=== PATIENT | male | born 1960 | race Caucasian/White ===

== ENCOUNTER 2021-01-23 19:51 | Inpatient (IN) | payer MEDICAID ==
[~2021-01-23] VITALS: Ht 172.7 cm; Wt 63.5 kg
--- NOTE | ~2021-01-23 | HEMODYNAMI ---
PATIENT:REMINGTON RIVERA MEDICAL RECORD: [id number] : 56 LOCATION:[facility] [id number] ADMISSION DATE: 01/23/21 Generatedon:114:22 Patient name: REMINGTON RIVERA Patient #: [id number] SSN: : 1960 Date of study: 01/28/2021 Page: Of Hemodynamic Procedure Report Patient Data Patient Demographics First Name: REMINGTON Gender: Male Last Name: MIGUEL : 1960 Patient #: [id number] Age: 60 year(s) Race: Unknown Additional ID: [id number] Contact details Address: [address] [place] [address] State: [place] City: [place] Zip code: [address] Past Medical History Allergies: No known allergies Admission Admission Data Admission Date: 01/23/2021 Admission Time: 22:29 Room #: [facility]6 Height (in.): 68 BSA: 1.76 (m2) Height (cm.): 172.72 BMI: 21.29 (kg/m2) Weight (lbs.): 140 Weight (kg.): 63.5 Procedure Procedure Types Cath Procedure Peripheral Cath Diagnostic Procedure PICC PICC Line Placement Procedure Description Procedure Date Procedure Date: 01/28/2021 Procedure Start Time: 14:12 Procedure Staff Name Function Jimmy Young MD Performing Physician Supriya Dejesus RT Strategic Communications Specialist Nneka Flores RN Nurse Luz Moore RN Nurse Barney Carcamo RT Scrub Procedure Data Cath Procedure Fluoroscopy Diagnostic fluoroscopy Total fluoroscopy Time: 0 time: 0 min min Diagnostic fluoroscopy Total fluoroscopy dose: 0 dose: 0 mGy mGy Hemodynamics Rest BSA: 1.76 (m2) O2 Consumption: Estimated: 239.36 (ml/min) O2 Consumption indexed : Estimated:136 (ml/min/m) Pre Cath Intra NCS Post Cath Procedure Log Time Note 13:56:34 Patient Height : 68 inches 13:56:39 Patient Weight : 140 lbs 13:57:15 Use device set PICC 13:57:18 SHIELD Sorbaview ([id number]) opened to sterile field. 13:57:19 Sterile Angiographic Pack opened to sterile field. 13:57:20 Bag Phyllis () opened to sterile field. 13:57:33 PowerPICC 5Fr double lumen catheter opened to sterile field. 13:57:48 - 13:57:52 Time tracking: Regular hours (M-F 7:00 - 5:00) 13:58:52 Patient received from Med/Surg to IR Alert and oriented. Tansferred to table in Supine position. 13:59:09 Patient allergic to No known allergies 14:04:12 Is patient on blood thinner?Yes 14:04:18 ACC The patient was administered the following blood thiners within the last 24 hours: ACCLovenox 14:04:37 Right Arm area was prepped with chlora-prep and draped in sterile fashion 14:04:42 - 14:11:32 Physician arrived 14::33 --------ALL STOP TIME OUT------ 14:11:33 Final Timeout: patient, procedure, and site verified with staff and physician. All members of the team are in agreement. 14:12:06 Procedure started. 14:12:07 Full Disclosure recording started 14:12:13 Local anesthetic to right arm with Lidocaine 1% by Jimmy Young MD.INITIAL ACCESS ONLY 14:21:05 PICC line was trimmed to 41cm and advanced to the superior vena cava.Position verified under fluoroscopy. 14:21:11 Procedure ended.(Physican Out) 14::33 Fluoroscopy time 00.00 minutes. 14:21:37 Fluoroscopy dose: 0 mGy 14:21:37 Flurop Dose total: 0 14:21:42 Procedure and supply charges have been captured, reviewed, submitted an d are correct. 14:22:20 Report given to Med/Surg. Device Usage Item Name Manufacture Quantity Catalog Hospital Part Current Minimal Lot# / Number Charge Number Stock Stock Serial# Code SHIELD Centurion 1 [id number] 5 Sorbaview ([id number]) Sterile Cardinal 1 [id number] 5 Angiographic Health Pack Bag Decanter Microtek 1 [id number] [id number] 5 () [employer] Inc[employer] PowerPICC Bard 1 [id number] 5 5Fr double lumen catheter Signature Audit [place] Stage Time Signature Unsigned Intra-Procedure 01/28/2021 Supriya Dejesus 2:22:38 PM RT(R) [facility] [address] [place] [address]
[~2021-01-23 19:51] MED LIST: COMBIVENT RESPIM4 GM INH; DULERA 200 MCG8.8 GM INH; FLORAJEN3 CAPS460 MG PO; GLUCOTROL 5 MG T5 MG PO; NEURONTIN 300300 MG PO; OMNICEF300 MG PO; PREDNISONE10 MG PO; SINGULAIR10 MG PO; ZITHROMAX250 MG PO
[2021-01-23 21:02] LABS: BASOPHILS 0.2 % (0-2); EOSINOPHILS 1.7 % (0-7); HEMATOCRIT 38.2 % (42.0-54.0); HEMOGLOBIN 12.5 g/dL (13.5-17.5); IMMATURE GRANULOCYTES 0.2 % (0-5); LYMPHOCYTE ABS# 2.95 10x3/uL (1.32-3.57); LYMPHOCYTES 21.5 % (15-50); MCH 33.8 pg (26.0-34.0); MCHC 32.7 g/dL (31.0-37.0); MCV 103.2 fL (80.0-100.0); MEAN PLATELET VOLUME 11.8 fL (7.4-10.4); MONOCYTES 8.1 % (2-11); NEUTROPHIL ABS# 9.38 10x3/uL (1.78-5.38); NEUTROPHILS 68.3 % (40-80); PLATELET COUNT 340 10x3/uL (130-400); RDW 16.1 % (11.5-14.5); WBC 13.8 10x3/uL (4.8-10.8)
[2021-01-23 21:04] LABS: ANION GAP 14.5 mmol/L (8-16); CALCIUM 9.1 mg/dL (8.5-10.1); CREATININE - SERUM 1.4 mg/dL (0.6-1.3); POTASSIUM - SERUM 4.5 mmol/L (3.5-5.1)
[2021-01-23 21:09] LABS: ALBUMIN 3.1 g/dL (3.4-5.0); BILIRUBIN - TOTAL 0.65 mg/dL (0.2-1.3); MAGNESIUM - SERUM 2.2 mg/dL (1.8-2.4); PROTEIN - SERUM 8.1 g/dL (6.4-8.2)
[2021-01-23 23:06] VITALS: BP 113/79
[2021-01-23] MEDS ORDERED: ALEVE220 MG PO (23:34)
[2021-01-23] MEDS ORDERED: SLEEP AID (23:35)
[2021-01-24 01:07] VITALS: BMI 21.3
--- NOTE | 2021-01-24 03:18 | NUR ---
PLACE WET TO DRY DRESSING ON INSIDE RIGHT FOOT OPEN ULCER (RED AND SWOOLEN WITH MINIMAL DISCHARGE NOTED), WRAPPED GAUZE AROUND FOOT TO KEEP IN PLACE, PILLOW UNDER FOOT TO HELP WITH CONFORT.
[2021-01-24 05:07] VITALS: BP 150/65
[2021-01-24 06:11] LABS: BASOPHILS 1.4 % (0-2); EOSINOPHILS 4.3 % (0-7); HEMOGLOBIN 11.9 g/dL (13.5-17.5); LYMPHOCYTES 23.8 % (15-50); MCH 34.1 pg (26.0-34.0); MCV 103.2 fL (80.0-100.0); MEAN PLATELET VOLUME 8.6 fL (7.4-10.4); MONOCYTES 9.7 % (2-11); NEUTROPHILS 60.8 % (40-80); PLATELET COUNT 306 10x3/uL (130-400); RBC 3.49 10x6/uL (4.20-6.10); RDW 15.3 % (11.5-14.5)
[2021-01-24 06:16] LABS: WBC 9.8 10x3/uL (4.8-10.8)
[2021-01-24 06:45] LABS: ALBUMIN 2.5 g/dL (3.4-5.0); ANION GAP 13.5 mmol/L (8-16); BILIRUBIN - TOTAL 0.67 mg/dL (0.2-1.3); CALCIUM 8.7 mg/dL (8.5-10.1); CARBON DIOXIDE 24.4 mmol/L (21.0-32.0); CREATININE - SERUM 1.1 mg/dL (0.6-1.3); POTASSIUM - SERUM 3.9 mmol/L (3.5-5.1); PROTEIN - SERUM 6.9 g/dL (6.4-8.2)
[2021-01-24 07:53] VITALS: Ht 172.7 cm; Wt 63.5 kg
--- NOTE | 2021-01-24 08:15 | NUR ---
PT RESTING QUIETLY IN BED WITH RIGHT LOWER EXTREMITY ELEVATED. REPORTS PAIN AT 9/10 AT THIS TIME. PAIN MEDICATION TO BE ADMINISTERED AT THIS TIME. IV TO RIGHT FOREARM WITH NS @ 75ML/HR INFUSING VIA PUMP. SITE WITHOUT REDNESS OR EDEMA. DRESSING TO RIGHT LOWER EXTREMITY C/D/I AT THIS TIME. PT DENIES FURTHER NEEDS AT THIS TIME. CL WITHIN REACH. ENCOURAGED TO CALL WITH NEEDS. CONTINUE POC
[2021-01-24 08:26] VITALS: BP 122/63
[2021-01-24 11:34] VITALS: BP 119/72
--- NOTE | 2021-01-24 14:05 | NUR ---
EKG PERFORMED PER MD ORDERS
[2021-01-24 17:26] VITALS: BP 122/70
--- NOTE | 2021-01-24 19:28 | NUR ---
PATIENT RESTING IN BED WITH NO S/S OF DISTRESS AND REQUESTED PAIN MEDS WHEN AVAILABLE. PATIENT DENIES OTHER NEEDS AT THIS TIME. BED IN LOWEST POSITION AND CALL LIGHT IN REACH. ENCOURAGED PATIENT TO CALL WITH OTHER NEEDS.
--- NOTE | 2021-01-24 19:48 | NUR ---
ADMINISTERED MEDS PER ORDERS. PATIENT EMERSON WELL. ENCOURAGED PATIENT TO CALL WITH NEEDS.
[2021-01-24 20:00] VITALS: BP 124/72
[2021-01-25] VITALS (9 sets, daily range): BP systolic 107–141; BP diastolic 50–78
[2021-01-25 05:32] LABS: BASOPHILS 0.9 % (0-2); EOSINOPHILS 5.1 % (0-7); HEMATOCRIT 35.9 % (42.0-54.0); HEMOGLOBIN 12.1 g/dL (13.5-17.5); LYMPHOCYTES 26.7 % (15-50); MCH 34.5 pg (26.0-34.0); MCHC 33.6 g/dL (31.0-37.0); MCV 102.7 fL (80.0-100.0); MEAN PLATELET VOLUME 8.9 fL (7.4-10.4); MONOCYTES 11.2 % (2-11); NEUTROPHILS 56.1 % (40-80); PLATELET COUNT 294 10x3/uL (130-400); RDW 15.4 % (11.5-14.5); WBC 9.5 10x3/uL (4.8-10.8)
[2021-01-25 05:40] LABS: ANION GAP 11.6 mmol/L (8-16); CALCIUM 8.6 mg/dL (8.5-10.1); CREATININE - SERUM 1.2 mg/dL (0.6-1.3); POTASSIUM - SERUM 3.6 mmol/L (3.5-5.1)
--- NOTE | 2021-01-25 07:57 | HP ---
PATIENT: REMINGTON RIVERA MEDICAL RECORD: [id number] ACCOUNT: [id number] LOCATION:[facility] : 56 ADMISSION DATE: 01/23/21 PCP: No PCP HISTORY AND PHYSICAL EXAMINATION REASON FOR ADMISSION: Right foot ulcer and pain, unable to walk. HISTORY OF PRESENT ILLNESS: The patient is a 60-year-old male, metabolic syndrome patient who was hospitalized at [facility] on 10/2020. He was treated for community-acquired pneumonia that occurred after he had had COVID while living in [place]. He was hospitalized for several weeks and was seen by medicine unassigned call in as well as pulmonary. At discharge, he apparently missed his follow up Medicaid [facility] appointment with Dr. Goode did not have his diabetic meds refilled. He said about a month and a half ago he noticed some blisters on the medial aspect of his right foot by the sole. He thought something had bit him, but gradually got worse. He was trying to "play doctor" himself, but that was not improving. Pain became so bad yesterday he could not walk and came to the ED. He denies fever, but does admit to having some trouble with claudication symptoms in his right leg when he walks a distance. He has a [id number] history of smoking. He quit after COVID. Denies alcohol use. He is retired and on Medicaid. PAST MEDICAL HISTORY: AODM diagnosed less than a year ago, COPD, nicotine use, COVID pneumonia in 2019, neuropathy in both feet. 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 FAMILY HISTORY: Mother from COVID as did his sister. There is no heart disease in his family. SOCIAL HISTORY: Denies alcohol use or recreational drug use. HOME MEDICATIONS: None. ALLERGIES: None known. REVIEW OF SYSTEMS: GENERAL: He has had about a 30-pound weight loss due to COVID, has gradually improved. No fever. HEENT: No recent visual change, sinus congestion or sore throat. He is edentulous. RESPIRATORY: He has shortness of breath on exertion. No recent cough, congestion or sputum production. CARDIAC: No exertional chest pain. Questionable history of some claudication in his right leg with walking two blocks. Denies hypertension, previous arrhythmias. GASTROINTESTINAL: No nausea, vomiting, change in stools, blood per rectum or history of ulcer disease. GENITOURINARY: Nocturia once nightly. ENDOCRINE: Denies polyuria, polydipsia, heat or cold intolerance. NEUROLOGIC: No history of stroke, TIA, vascular headaches. Does have tingling and numbness in the bottoms of both of his feet. MUSCULOSKELETAL: Pain in his right foot as mentioned, unable to walk now currently due to the ulcer and pain, plantar aspect of the foot, denies injury. HISTORY AND PHYSICAL [id number] REMINGTON RIVERA INTEGUMENT: As above. Denies pruritus. PSYCHIATRIC: Denies depression. PHYSICAL EXAMINATION: GENERAL: Alert, thin, male in no acute distress, gives a good history. VITAL SIGNS: His height is 5 feet 8 inches, his weight is 140 pounds, blood pressure is 140/72, sat 99% on room air, respirations 18, temperature 98.7. HEENT: Normocephalic. Eyes are clear. Pupils are reactive. Oropharynx; he is edentulous. NECK: No bruits or masses. CHEST: He has distant breath sounds with forced expiration, but no wheezes bilaterally. HEART: Regular rate and rhythm without murmur. ABDOMEN: Soft, nontender. No organomegaly or tenderness. GENITOURINARY: Unremarkable. RECTAL: Deferred. EXTREMITIES: His right foot has a mid-plantar ulcer with surrounding cellulitic changes, extremely painful to bear weight. He has slight decreased sensation to touch involving both feet. NEUROLOGICAL: Oriented to person, place and time. Cranial nerves are intact. Gait was not tested due to pain. Sensory; slight decreased sensation to touch, involves both feet. Femoral and popliteal pulses are intact in the right leg. LABORATORY AND DIAGNOSTIC DATA: Shows white count of 13,800, hemoglobin 12.5, hematocrit 38, MCV is 103. BMP is normal with a glucose of 86, creatinine of 1.1. A1c of 5.7. Lactic acid 1.7. Liver functions are normal. X-ray of the right foot shows erosion at the base of the medial aspect of the medial cuneiform navicular bone. No fracture is noted. Erosions are consistent with possible osteomyelitis. ASSESSMENT: 1. Right foot ulcer with cellulitis, possible osteomyelitis, unable to walk. 2. Adult-onset diabetes mellitus, well-controlled. 3. Chronic obstructive pulmonary disease with nicotine addiction, resolved. 4. Subacute COVID illness. PLAN: The patient has been admitted, placed on IV antibiotics. Wound has been cultured. Orthopedics has been consulted. The patient understands current plan of care and agrees. TRANSINT:[id number] Voice Confirmation ID: [id number] DOCUMENT ID: [id number] FAITH MORALES MD at 0757 CC: [id number] DICTATION DATE: 01/24/21820 FIELD MARKETING ASSOCIATE: 01/24/21928 ADM IN [facility] [address] [place] [address]
--- NOTE | 2021-01-25 08:00 | NUR ---
PT RESTING IN BED WITH RIGHT LOWER EXTREMITY ELEVATED. PT REPORTS PAIN 10/10 AT THIS TIME. DISCUSSED NEXT DOSE OF PAIN MEDICATION AND WHEN CAN BE ADMINISTERED. PT VOICES UNDERSTANDING. IV TO RIGHT FOREARM WITH NS @ 75ML/HR INFUSING VIA PUMP. SITE WITHOUT REDNESS OR EDEMA. DRESSING C/D/I TO RIGHT LOWER EXTREMITY. EXTREMITY WARM TO TOUCH WITH REDNESS AND SWELLING NOTED TO EXTREMITY. EXTREMITY ELEVATED ON PILLOWS. PT DENIES FURTHER NEEDS AT THIS TIME. CL WITHIN REACH. ENCOURGED TO CALL WITH NEEDS. CONTINUE POC
--- NOTE | 2021-01-25 15:37 | NUR ---
PT TAKEN TO SURGERY VIA BED FOR PROCEDURE
--- NOTE | 2021-01-25 16:52 | NUR ---
PT RETURNED FROM SURGERY VIA BED. AWAKE ALERT AND ORIENTED. PREVENA DRESSING INTACT TO RIGHT LOWER EXT
--- NOTE | 2021-01-25 19:17 | NUR ---
PATIENT RESTING IN BED WITH NO S/S OF DISTRESS AND DENIES NEEDS AT THIS TIME. BED IN LOWEST POSITION AND CALL LIGHT IN REACH. ENCOURAGED PATIENT TO CALL WITH NEEDS.
--- NOTE | 2021-01-25 20:01 | NUR ---
ADMINISTERED MEDS PER ORDERS. PATIENT EMERSON WELL. ENCOURAGED TO CALL WITH NEEDS.
[2021-01-26] VITALS: BP 112/61
[2021-01-26 06:30] LABS: ANION GAP 13.2 mmol/L (8-16); CALCIUM 8.7 mg/dL (8.5-10.1); CARBON DIOXIDE 23.8 mmol/L (21.0-32.0); CREATININE - SERUM 1.1 mg/dL (0.6-1.3)
[2021-01-26] MEDS ORDERED: HYDROCODON-ACE1 EAC7 PO (06:55)
--- NOTE | 2021-01-26 07:40 | NUR ---
was medicated with norco for c/o right foot pain. c/l in reach at bedside.
[2021-01-26 08:48] LABS: BASOPHILS 0.5 % (0-2); EOSINOPHILS 0.1 % (0-7); HEMOGLOBIN 11.5 g/dL (13.5-17.5); LYMPHOCYTES 22.5 % (15-50); MCH 34.1 pg (26.0-34.0); MCHC 32.8 g/dL (31.0-37.0); MCV 103.8 fL (80.0-100.0); MEAN PLATELET VOLUME 9.3 fL (7.4-10.4); MONOCYTES 7.7 % (2-11); NEUTROPHILS 69.2 % (40-80); PLATELET COUNT 333 10x3/uL (130-400); RBC 3.37 10x6/uL (4.20-6.10)
[2021-01-26 08:50] LABS: WBC 7.1 10x3/uL (4.8-10.8)
[2021-01-26 09:22] VITALS: BP 118/55
[2021-01-26 11:35] VITALS: BP 120/77
--- NOTE | 2021-01-26 12:59 | NUR ---
PATIENT STATED PAIN IS AT 9, ADMINISTERED PRN PAIN MEDICATION, 300 EMPTIED FROM URINAL, NO OTHER NEEDS AT THIS TIME. CONTINUE WITH PLAN OF CARE
--- NOTE | 2021-01-26 16:58 | NUR ---
I have reviewed this patient and I concur with the Shift Assessment completed by the Licensed Practical Nurse today this shift.
[2021-01-26 17:28] VITALS: BP 132/73
[2021-01-26 20:00] VITALS: BP 137/63
--- NOTE | 2021-01-26 22:08 | NUR ---
1930) EYES CLOSED RESP DEEP AND EVEN LYING ON LEFT SIDE RT. LEG ELEVATED ON PILLOW WITH WOUND VAC IN PLACE . WILL CONTINUE TO MONITOR FOR ANY CHGES AND FOLLOW CURRENT PLAN OF CARE.2099) REQUESTING IV PAIN MED.INFORMED WILL BE DUE AT 2129.STATES OTHER NURSES HELP ME OUT CAUSE I WAS HURTING.INSTRUCTED CALL TO SEE IF IV MORPHINE CAN BE RENEWED.MARK OFFERED.REFUSED STATES YOU TRY HAVIN SURGERY ON YOUR LEG SEE HOW YOU LIKE I CAN MOTHER-ERICA GO HOME AND HURT WILL WESTON THIS MOTHER FUCKIN PLACE ATTEMPTS TO INSTRUCT ON PHYSICIAN ORDERS UNSUCESSFUL,CONTINUES TO CURSE REPORTED TO CHARGE NURSE raj mckenna rn to housekeeper cleaning cooking edith fischer. instructed to call securty because of patients aggressiveness.DR KAPLAN CALLED X2 NO RESPONSE.2214) DR LOBO BARREL DRAINER FOR DR MORALES NEW ORDERS REC'D TO RENEW IV PAIN MEDS REC'D.WILL CONTINUE TO MONITOR AND FOLLOW CURRENT PLAN OF CARE
[2021-01-27 04:00] VITALS: BP 133/73
--- NOTE | 2021-01-27 06:00 | NUR ---
I have reviewed this patient and I concur with the Shift Assessment completed by the Licensed Practical Nurse today this shift.
[2021-01-27 08:38] VITALS: BP 142/79
--- NOTE | 2021-01-27 11:28 | NUR ---
I have reviewed this patient and I concur with the Shift Assessment completed by the Licensed Practical Nurse today this shift.
[2021-01-27 11:45] VITALS: BP 138/78
--- NOTE | 2021-01-27 12:03 | NUR ---
Nutrition follow-up: Diet order: Consistent CHO PO intake 100% of meals Labs reviewed; glucose under very good control A1c: 5.7% Wt: 140# Pt with very good po intake Will continue to provide food choices and honor food preferences. Will follow-up on continued progress toward goals: 02/03/21
--- NOTE | 2021-01-27 13:33 | MORECARE ---
CASE MANAGEMENT DISCHARGE SUMMARY PATIENT: REMINGTON RIVERA UNIT: [id number] ADM DATE: 01/23/21 AGE: 60 : 56 SEX: M ROOM/BED: D.2206 AUTHOR: IRLANDA MONTEZ PHYSICIAN: REFERRING PHYSICIAN: FAITH MORALES MD DATE OF SERVICE: 01/27/21 Case Management Discharge Planning Summary DCP REVIEW SUMMARY ANTICIPATED D/C DATE: EXPECTED LOS : CASE STATUS: DCP Initiated INITIAL REVIEW: 01/23/2021 INITIAL REVIEWER: Ida Briseno FINAL DISCHARGE DISPOSITION: : FINAL REVIEWER: FINAL REVIEW DATE: DCP Focus Questions & Answers DCP Screen QUESTION: ANSWER High Risk Factors: : Hosp related to CHF, COPD, DM, End Stage Ds, CVA, CA DCP Evaluation QUESTION: ANSWER Patient and/or caregiver agree upon recommended discharge plan? : Yes Family / Caregiver's ability to cope with chronic illness: : a. Adequate (ability to meet patient's medical needs, ensures patient attends medical appts.) Patient's current cognitive status: : *Oriented to person, place, situation, time and present Patient's ability to cope with chronic illness : a. Adequate (0-3 ED visits in 6 mos., adequate financial resources, attends scheduled appts.) Patient gives permission to discuss discharge plans with: (name, relationship and number) : DURAN VEGA ( COUSIN) [phone] Does the patient have the ability to pay for or attain post discharge needs / services? : Yes Functional screen assessment: : Basic needs can adequately be met by self Family / Caregiver's ability to cope with chronic illness: : a. Adequate (ability to meet patient's medical needs, ensures patient attends medical appts.) Physical Status: : Independent with ADL's Equipment needed for post hospitalization: : Walker - Rolling Is there a likelihood that the patient will require additional services to return to the preadmission environment? : No Living Arrangements: : Detention Other Equipment comments: : WILL ORDER HIM A WALKER HE SAID IT IS EASIER THAN HIS CRUTCHES Results of this evaluation have been discussed with: : Patient Patient with capacity for self-care or can be cared for in same environment as prior to hospitalization? : Yes Baseline cognitive status: : *Oriented to person, place, situation, time and present Physical environment modification needed / anticipated for discharge: : No Medication Management: : Patient states can afford medications Planned post hospital services available for patient? : Yes Pharmacy name(s): : [facility] Planned post hospital services covered by insurance plan? : N/A Does Patient have transportation to get home and to follow-up medical appointments when discharged from the hospital? : Yes Would patient like to participate in any Care Coordination programs (if applicable): : Not applicable Comments: : HIS COUSIN DURAN OR FRIENDS Does the patient have electricity at home? : Yes Does the patient have running water in their house? : Yes Equipment in use: : [employer] Mental health screen: : No mental health history Psychosocial status: : Independent adult (18-64) Abuse/Neglect: : None DCP Re-evaluation QUESTION: ANSWER Would patient like to participate in any Care Coordination programs (if applicable): : Not applicable PATIENT: REMINGTON RIVERA ENCOUNTER: [id number] MEDICAL RECORD#: [id number] ADMISSION DATE: 01/23/2021 DISCHARGE DATE: ATTENDING MD: FAITH ERAZO : AGE: 60 MARITAL STATUS: S DC PLAN ID: [id number] FACILITY: [facility] PRINTED ON: 01/27/21 13:33 CT All edits/amendments must be made on the electronic document DICTATION DATE: 01/27/211332 RESIDENTIAL SERVICE TECHNICIAN: NANCY 01/27/211332 RPT#: [id number] DC DATE: STATUS: ADM IN [facility] [address] [place] [address] END OF REPORT
--- NOTE | 2021-01-27 13:44 | MORECARE ---
CASE MANAGEMENT DISCHARGE SUMMARY PATIENT: REMINGTON RIVERA UNIT: [id number] ADM DATE: 01/23/21 AGE: 60 : 56 SEX: M ROOM/BED: D.2206 AUTHOR: IRLANDA MONTEZ PHYSICIAN: REFERRING PHYSICIAN: FAITH MORALES MD DATE OF SERVICE: 01/27/21 Case Management Discharge Planning Summary COMMENTS ENTERED DATE: 01/27/21 13:31 CT COMMENT TYPE: Discharge Planning REVIEWER: Ida Briseno CM met with patient to complete initial dc planning assessment. CM educated patient on the CM role and verbal consent given by patient to complete assessment. Patient lives at home independently at home by himself. At discharge patient plans to return home and feels this is a safe discharge. CM discussed availability of home health, rehab services, and medical equipment. He did not feel like he needed home health. He thinks his home is a safe place. His cousin will be his after school driver home and he also has friends who can take him where he needs to go. He has crutches, but stated that a walker was easier to use with the wound vac. I told him that I would order him one and have it delivered to the hospital. He does not have a PCP, we will give him information with [facility] to set up a MD. He stated that he has a truck at home, but it is a stick shift and he can't drive it with his foot the way it is, but assured me that his cousin or friends will help him as needed. Patient denied known discharge needs at this time. CM will continue to follow and will assist as needed with dc plans/needs DCP REVIEW SUMMARY ANTICIPATED D/C DATE: EXPECTED LOS : CASE STATUS: DCP Initiated INITIAL REVIEW: 01/23/2021 INITIAL REVIEWER: Ida Briseno FINAL DISCHARGE DISPOSITION: : FINAL REVIEWER: FINAL REVIEW DATE: DCP Focus Questions & Answers DCP Screen QUESTION: ANSWER High Risk Factors: : Hosp related to CHF, COPD, DM, End Stage Ds, CVA, CA DCP Evaluation QUESTION: ANSWER Patient and/or caregiver agree upon recommended discharge plan? : Yes Family / Caregiver's ability to cope with chronic illness: : a. Adequate (ability to meet patient's medical needs, ensures patient attends medical appts.) Patient's current cognitive status: : *Oriented to person, place, situation, time and present Patient's ability to cope with chronic illness : a. Adequate (0-3 ED visits in 6 mos., adequate financial resources, attends scheduled appts.) Patient gives permission to discuss discharge plans with: (name, relationship and number) : DURAN VEGA ( COUSIN) [phone] Does the patient have the ability to pay for or attain post discharge needs / services? : Yes Functional screen assessment: : Basic needs can adequately be met by self Family / Caregiver's ability to cope with chronic illness: : a. Adequate (ability to meet patient's medical needs, ensures patient attends medical appts.) Physical Status: : Independent with ADL's Equipment needed for post hospitalization: : Walker - Rolling Is there a likelihood that the patient will require additional services to return to the preadmission environment? : No Living Arrangements: : Snf Other Equipment comments: : WILL ORDER HIM A WALKER HE SAID IT IS EASIER THAN HIS CRUTCHES Results of this evaluation have been discussed with: : Patient Patient with capacity for self-care or can be cared for in same environment as prior to hospitalization? : Yes Baseline cognitive status: : *Oriented to person, place, situation, time and present Physical environment modification needed / anticipated for discharge: : No Medication Management: : Patient states can afford medications Planned post hospital services available for patient? : Yes Pharm[facility] name(s): : [facility] Planned post hospital services covered by insurance plan? : N/A Does Patient have transportation to get home and to follow-up medical appointments when discharged from the hospital? : Yes Would patient like to participate in any Care Coordination programs (if applicable): : Not applicable Comments: : HIS COUSIN DURAN OR FRIENDS Does the patient have electricity at home? : Yes Does the patient have running water in their house? : Yes Equipment in use: : Crutches Mental health screen: : No mental health history Psychosocial status: : Independent adult (18-64) Abuse/Neglect: : None DCP Re-evaluation QUESTION: ANSWER Would patient like to participate in any Care Coordination programs (if applicable): : Not applicable PATIENT: REMINGTON RIVERA ENCOUNTER: [id number] MEDICAL RECORD#: [id number] ADMISSION DATE: 01/23/2021 DISCHARGE DATE: ATTENDING MD: FAITH ERAZO : AGE: 60 MARITAL STATUS: S DC PLAN ID: [id number] FACILITY: [facility] PRINTED ON: 01/27/21 13:44 CT All edits/amendments must be made on the electronic document DICTATION DATE: 01/27/211343 HIGH SCHOOL FRENCH TEACHER: NANCY 01/27/211343 RPT#: [id number] DC DATE: STATUS: ADM IN [facility] [address] [place] [address] END OF REPORT
[2021-01-27 17:03] VITALS: BP 125/79
[2021-01-27 20:00] VITALS: BP 136/67
[2021-01-28 04:00] VITALS: BP 121/74
[2021-01-28 08:23] VITALS: BP 142/74
--- NOTE | 2021-01-28 11:33 | NUR ---
PATIENT IS WITHOUT NEEDS.CALL LIGHT IN REACH
[2021-01-28 12:09] VITALS: BP 120/64
[2021-01-28 17:02] VITALS: BP 124/72
[2021-01-28 20:00] VITALS: BP 121/72
[2021-01-29] VITALS: BP 111/70
[2021-01-29 04:00] VITALS: BP 114/66
[2021-01-29 08:27] VITALS: BP 113/62
[2021-01-29 12:37] VITALS: BP 128/65
--- NOTE | 2021-01-29 14:08 | MORECARE ---
CASE MANAGEMENT DISCHARGE SUMMARY PATIENT: REMINGTON RIVERA UNIT: [id number] ADM DATE: 01/23/21 AGE: 60 : 56 SEX: M ROOM/BED: D.2206 AUTHOR: IRLANDA MONTEZ PHYSICIAN: REFERRING PHYSICIAN: FAITH MORALES MD DATE OF SERVICE: 01/29/21 Case Management Discharge Planning Summary COMMENTS ENTERED DATE: 01/27/21 13:31 CT COMMENT TYPE: Discharge Planning REVIEWER: Ida Briseno CM met with patient to complete initial dc planning assessment. CM educated patient on the CM role and verbal consent given by patient to complete assessment. Patient lives at home independently at home by himself. At discharge patient plans to return home and feels this is a safe discharge. CM discussed availability of home health, rehab services, and medical equipment. He did not feel like he needed home health. He thinks his home is a safe place. His cousin will be his driver starting gate home and he also has friends who can take him where he needs to go. He has crutches, but stated that a walker was easier to use with the wound vac. I told him that I would order him one and have it delivered to the hospital. He does not have a PCP, we will give him information with [facility] to set up a MD. He stated that he has a truck at home, but it is a stick shift and he can't drive it with his foot the way it is, but assured me that his cousin or friends will help him as needed. Patient denied known discharge needs at this time. CM will continue to follow and will assist as needed with dc plans/needs DCP REVIEW SUMMARY ANTICIPATED D/C DATE: EXPECTED LOS : CASE STATUS: DCP Initiated INITIAL REVIEW: 01/23/2021 INITIAL REVIEWER: Ida Briseno FINAL DISCHARGE DISPOSITION: : FINAL REVIEWER: FINAL REVIEW DATE: DCP Focus Questions & Answers DCP Screen QUESTION: ANSWER High Risk Factors: : Hosp related to CHF, COPD, DM, End Stage Ds, CVA, CA DCP Evaluation QUESTION: ANSWER Patient and/or caregiver agree upon recommended discharge plan? : Yes Family / Caregiver's ability to cope with chronic illness: : a. Adequate (ability to meet patient's medical needs, ensures patient attends medical appts.) Patient's current cognitive status: : *Oriented to person, place, situation, time and present Patient's ability to cope with chronic illness : a. Adequate (0-3 ED visits in 6 mos., adequate financial resources, attends scheduled appts.) Patient gives permission to discuss discharge plans with: (name, relationship and number) : DURAN VEGA ( COUSIN) [phone] Does the patient have the ability to pay for or attain post discharge needs / services? : Yes Functional screen assessment: : Basic needs can adequately be met by self Family / Caregiver's ability to cope with chronic illness: : a. Adequate (ability to meet patient's medical needs, ensures patient attends medical appts.) Physical Status: : Independent with ADL's Equipment needed for post hospitalization: : Walker - Rolling Is there a likelihood that the patient will require additional services to return to the preadmission environment? : No Living Arrangements: : Assisted Other Equipment comments: : WILL ORDER HIM A WALKER HE SAID IT IS EASIER THAN HIS CRUTCHES Results of this evaluation have been discussed with: : Patient Patient with capacity for self-care or can be cared for in same environment as prior to hospitalization? : Yes Baseline cognitive status: : *Oriented to person, place, situation, time and present Physical environment modification needed / anticipated for discharge: : No Medication Management: : Patient states can afford medications Planned post hospital services available for patient? : Yes Pharmacy name(s): : [facility] Planned post hospital services covered by insurance plan? : N/A Does Patient have transportation to get home and to follow-up medical appointments when discharged from the hospital? : Yes Would patient like to participate in any Care Coordination programs (if applicable): : Not applicable Comments: : HIS COUSIN DURAN OR FRIENDS Does the patient have electricity at home? : Yes Does the patient have running water in their house? : Yes Equipment in use: : Crutches Mental health screen: : No mental health history Psychosocial status: : Independent adult (18-64) Abuse/Neglect: : None DCP Re-evaluation QUESTION: ANSWER Would patient like to participate in any Care Coordination programs (if applicable): : Not applicable PATIENT: REMINGTON RIVERA ENCOUNTER: [id number] MEDICAL RECORD#: [id number] ADMISSION DATE: 01/23/2021 DISCHARGE DATE: ATTENDING MD: FAITH ERAZO : AGE: 60 MARITAL STATUS: S DC PLAN ID: [id number] FACILITY: [facility] PRINTED ON: 01/29/21 14:07 CT All edits/amendments must be made on the electronic document DICTATION DATE: 01/29/211406 REINFORCING IRON AND REBAR WORKERS: NANCY 01/29/211406 RPT#: [id number] DC DATE: STATUS: ADM IN [facility] [address] [place] [address] END OF REPORT
[2021-01-29 16:50] VITALS: BP 139/68
[2021-01-29 20:39] VITALS: BP 162/53
--- NOTE | 2021-01-29 23:55 | NUR ---
ASSESSED AT THE BEGINNING OF THE SHIFT. PT IS ALERT AND ORIENTED, ABLE TO VERBALIZE NEEDS. THERE IS A WOUND VAC TO HIS RIGHT FOOT AND IT IS WORKING WELL. URINAL IS AT THE BEDSIDE AND IS BEING EMPTIED FREQUESNTLY. HIS BLOOD SUGAR TONIGHT WAS 138 AND HE DID NOT NEED ANY COVERAGE. PAIN MEDS HAVE BEEN GIVEN ORDERED. HE STATES IT IS HURING QUITE A BIT.
[2021-01-30] MEDS ORDERED: FORTAZ IV (08:04)
[2021-01-30] MEDS ORDERED: [UNRECOGNIZED DRUG - OTHER] IV (08:04)
[2021-01-30] MEDS ORDERED: METFORMIN HCL500 M1 PO (08:04)
[2021-01-30] MEDS ORDERED: TRELEGY ELLIPT1 EACH INH (08:05)
[2021-01-30] MEDS ORDERED: MAXIPIME 2 GM/D52 G1 IV (08:16)
--- NOTE | 2021-01-30 08:23 | MORECARE ---
CASE MANAGEMENT DISCHARGE SUMMARY PATIENT: REMINGTON RIVERA UNIT: [id number] ADM DATE: 01/23/21 AGE: 60 : 56 SEX: M ROOM/BED: D.2206 AUTHOR: MELIDA,DOC PHYSICIAN: REFERRING PHYSICIAN: FAITH MORALES MD DATE OF SERVICE: 01/30/21 Case Management Discharge Planning Summary COMMENTS ENTERED DATE: 01/30/21 8:17 CT COMMENT TYPE: Discharge Planning REVIEWER: Ida Briseno [facility] WILL NOT BE ABLE TO TAKE THE PATIENT TILL NEXT WEEK, I HAVE NOT HEARD BACK FROM [facility] I WILL REACH OUT TO [facility] WILL BE HERE AT 10:30 FOR EDUCATION OF THE HOME IV ABX ENTERED DATE: 01/30/21 8:16 CT COMMENT TYPE: Discharge Planning REVIEWER: Ida Briseno LATE ENTRY 01/29/21 PATIENT WILL NEED 42 DAYS OF IV ABX. THEY WILL ALSO NEED HOME HEALTH FOR THIS [facility] CAN NOT TAKE AN IV ABX PATIENT ON RIGHT NOW [facility] IS CHECKING FOR AVAIBILITY, [facility] IS ALSO CHECKING TO SEE IF THEY CAN MANAGE IT ENTERED DATE: 01/27/21 13:31 CT COMMENT TYPE: Discharge Planning REVIEWER: Ida Briseno CM met with patient to complete initial dc planning assessment. CM educated patient on the CM role and verbal consent given by patient to complete assessment. Patient lives at home independently at home by himself. At discharge patient plans to return home and feels this is a safe discharge. CM discussed availability of home health, rehab services, and medical equipment. He did not feel like he needed home health. He thinks his home is a safe place. His cousin will be his spotter driver home and he also has friends who can take him where he needs to go. He has crutches, but stated that a walker was easier to use with the wound vac. I told him that I would order him one and have it delivered to the hospital. He does not have a PCP, we will give him information with [facility] to set up a MD. He stated that he has a truck at home, but it is a stick shift and he can't drive it with his foot the way it is, but assured me that his cousin or friends will help him as needed. Patient denied known discharge needs at this time. CM will continue to follow and will assist as needed with dc plans/needs DCP REVIEW SUMMARY ANTICIPATED D/C DATE: EXPECTED LOS : CASE STATUS: DCP Initiated INITIAL REVIEW: 01/23/2021 INITIAL REVIEWER: Ida Briseno FINAL DISCHARGE DISPOSITION: : FINAL REVIEWER: FINAL REVIEW DATE: DCP Focus Questions & Answers DCP Screen QUESTION: ANSWER High Risk Factors: : Hosp related to CHF, COPD, DM, End Stage Ds, CVA, CA DCP Evaluation QUESTION: ANSWER Patient gives permission to discuss discharge plans with: (name, relationship and number) : DURAN VEGA ( COUSIN) [phone] Patient's ability to cope with chronic illness : a. Adequate (0-3 ED visits in 6 mos., adequate financial resources, attends scheduled appts.) Patient's current cognitive status: : *Oriented to person, place, situation, time and present Family / Caregiver's ability to cope with chronic illness: : a. Adequate (ability to meet patient's medical needs, ensures patient attends medical appts.) Patient and/or caregiver agree upon recommended discharge plan? : Yes Family / Caregiver's ability to cope with chronic illness: : a. Adequate (ability to meet patient's medical needs, ensures patient attends medical appts.) Physical Status: : Independent with ADL's Functional screen assessment: : Basic needs can adequately be met by self Does the patient have the ability to pay for or attain post discharge needs / services? : Yes Living Arrangements: : Retirement Is there a likelihood that the patient will require additional services to return to the preadmission environment? : No Equipment needed for post hospitalization: : Walker - Rolling Baseline cognitive status: : *Oriented to person, place, situation, time and present Patient with capacity for self-care or can be cared for in same environment as prior to hospitalization? : Yes Results of this evaluation have been discussed with: : Patient Other Equipment comments: : WILL ORDER HIM A WALKER HE SAID IT IS EASIER THAN HIS CRUTCHES Physical environment modification needed / anticipated for discharge: : No Medication Management: : Patient states can afford medications Pharmacy name(s): : [facility] Planned post hospital services available for patient? : Yes Does Patient have transportation to get home and to follow-up medical appointments when discharged from the hospital? : Yes Planned post hospital services covered by insurance plan? : N/A Comments: : HIS COUSIN DURAN OR FRIENDS Would patient like to participate in any Care Coordination programs (if applicable): : Not applicable Does the patient have electricity at home? : Yes Does the patient have running water in their house? : Yes Equipment in use: : Crutches Mental health screen: : No mental health history Psychosocial status: : Independent adult (18-64) Abuse/Neglect: : None DCP Re-evaluation QUESTION: ANSWER Would patient like to participate in any Care Coordination programs (if applicable): : Not applicable PATIENT: REMINGTON RIVERA ENCOUNTER: [id number] MEDICAL RECORD#: [id number] ADMISSION DATE: 01/23/2021 DISCHARGE DATE: ATTENDING MD: FAITH ERAZO : AGE: 60 MARITAL STATUS: S DC PLAN ID: [id number] FACILITY: [facility] PRINTED ON: 01/30/21 8:23 CT All edits/amendments must be made on the electronic document DICTATION DATE: 01/30/21822 PROFESSOR OF GENETICS: NANCY 01/30/21822 RPT#: [id number] DC DATE: STATUS: ADM IN [facility] [address] [place] [address] END OF REPORT
[2021-01-30 08:48] VITALS: BP 116/71
--- NOTE | 2021-01-30 09:48 | MORECARE ---
CASE MANAGEMENT DISCHARGE SUMMARY PATIENT: REMINGTON RIVERA UNIT: [id number] ADM DATE: 01/23/21 AGE: 60 : 56 SEX: M ROOM/BED: D.2206 AUTHOR: MELIDA,DOC PHYSICIAN: REFERRING PHYSICIAN: FAITH MORALES MD DATE OF SERVICE: 01/30/21 Case Management Discharge Planning Summary COMMENTS ENTERED DATE: 01/30/21 9:39 CT COMMENT TYPE: Discharge Planning REVIEWER: Ida Briseno THE IV ABX ORDER WAS CHANGED THIS MORING SO I HAVE RESUBMITTED IT TO [place], OF RIGHT NOW [facility] CAN NOT ACCEPT THE PATIENT TILL WED, I HAVE SENT THE REFERRAL TO [facility] AND SPOKE WITH CLYDE SHE WILL REVIEW IT AND GET BACK WITH ME CM TO CONTINUE TO FOLLOW AND ASSIST NEEDED ENTERED DATE: 01/30/21 8:17 CT COMMENT TYPE: Discharge Planning REVIEWER: Ida Briseno [facility] WILL NOT BE ABLE TO TAKE THE PATIENT TILL NEXT WEEK, I HAVE NOT HEARD BACK FROM [facility]ARE [facility] I WILL REACH OUT TO [facility] WILL BE HERE AT 10:30 FOR EDUCATION OF THE HOME IV ABX ENTERED DATE: 01/30/21 8:16 CT COMMENT TYPE: Discharge Planning REVIEWER: Ida Briseno LATE ENTRY 01/29/21 PATIENT WILL NEED 42 DAYS OF IV ABX. THEY WILL ALSO NEED HOME HEALTH FOR THIS [facility] CAN NOT TAKE AN IV ABX PATIENT ON RIGHT NOW [facility], [facility] IS ALSO CHECKING TO SEE IF THEY CAN MANAGE IT ENTERED DATE: 01/27/21 13:31 CT COMMENT TYPE: Discharge Planning REVIEWER: Ida Briseno CM met with patient to complete initial dc planning assessment. CM educated patient on the CM role and verbal consent given by patient to complete assessment. Patient lives at home independently at home by himself. At discharge patient plans to return home and feels this is a safe discharge. CM discussed availability of home health, rehab services, and medical equipment. He did not feel like he needed home health. He thinks his home is a safe place. His cousin will be his maintenance truck driver home and he also has friends who can take him where he needs to go. He has crutches, but stated that a walker was easier to use with the wound vac. I told him that I would order him one and have it delivered to the hospital. He does not have a PCP, we will give him information with [facility] to set up a MD. He stated that he has a truck at home, but it is a stick shift and he can't drive it with his foot the way it is, but assured me that his cousin or friends will help him as needed. Patient denied known discharge needs at this time. CM will continue to follow and will assist as needed with dc plans/needs DCP REVIEW SUMMARY ANTICIPATED D/C DATE: EXPECTED LOS : CASE STATUS: DCP Initiated INITIAL REVIEW: 01/23/2021 INITIAL REVIEWER: Ida Briseno FINAL DISCHARGE DISPOSITION: : FINAL REVIEWER: FINAL REVIEW DATE: DCP Focus Questions & Answers DCP Screen QUESTION: ANSWER High Risk Factors: : Hosp related to CHF, COPD, DM, End Stage Ds, CVA, CA DCP Evaluation QUESTION: ANSWER Patient gives permission to discuss discharge plans with: (name, relationship and number) : DURAN VEGA ( COUSIN) [phone] Patient's ability to cope with chronic illness : a. Adequate (0-3 ED visits in 6 mos., adequate financial resources, attends scheduled appts.) Patient's current cognitive status: : *Oriented to person, place, situation, time and present Family / Caregiver's ability to cope with chronic illness: : a. Adequate (ability to meet patient's medical needs, ensures patient attends medical appts.) Patient and/or caregiver agree upon recommended discharge plan? : Yes Physical Status: : Independent with ADL's Family / Caregiver's ability to cope with chronic illness: : a. Adequate (ability to meet patient's medical needs, ensures patient attends medical appts.) Functional screen assessment: : Basic needs can adequately be met by self Does the patient have the ability to pay for or attain post discharge needs / services? : Yes Living Arrangements: : Custodial Is there a likelihood that the patient will require additional services to return to the preadmission environment? : No Equipment needed for post hospitalization: : Walker - Rolling Baseline cognitive status: : *Oriented to person, place, situation, time and present Patient with capacity for self-care or can be cared for in same environment as prior to hospitalization? : Yes Results of this evaluation have been discussed with: : Patient Other Equipment comments: : WILL ORDER HIM A WALKER HE SAID IT IS EASIER THAN HIS CRUTCHES Physical environment modification needed / anticipated for discharge: : No Medication Management: : Patient states can afford medications Pharm[facility] name(s): : [facility] Planned post hospital services available for patient? : Yes Does Patient have transportation to get home and to follow-up medical appointments when discharged from the hospital? : Yes Planned post hospital services covered by insurance plan? : N/A Comments: : HIS COUSIN DURAN OR FRIENDS Would patient like to participate in any Care Coordination programs (if applicable): : Not applicable Does the patient have electricity at home? : Yes Does the patient have running water in their house? : Yes Equipment in use: : Crutches Mental health screen: : No mental health history Psychosocial status: : Independent adult (18-64) Abuse/Neglect: : None DCP Re-evaluation QUESTION: ANSWER Would patient like to participate in any Care Coordination programs (if applicable): : Not applicable PATIENT: REMINGTON RIVERA ENCOUNTER: [id number] MEDICAL RECORD#: [id number] ADMISSION DATE: 01/23/2021 DISCHARGE DATE: ATTENDING MD: FAITH ERAZO : AGE: 60 MARITAL STATUS: S DC PLAN ID: [id number] FACILITY: [facility] PRINTED ON: 01/30/21 9:47 CT All edits/amendments must be made on the electronic document DICTATION DATE: 01/30/21946 EMU FARM WORKER: NANCY 01/30/21946 RPT#: [id number] DC DATE: STATUS: ADM IN [facility] [address] [place] [address] END OF REPORT
--- NOTE | 2021-01-30 12:08 | MORECARE ---
CASE MANAGEMENT DISCHARGE SUMMARY PATIENT: REMINGTON RIVERA UNIT: [id number] ADM DATE: 01/23/21 AGE: 60 : 56 SEX: M ROOM/BED: D.2206 AUTHOR: MELIDA,DOC PHYSICIAN: REFERRING PHYSICIAN: FAITH MORALES MD DATE OF SERVICE: 01/30/21 Case Management Discharge Planning Summary COMMENTS ENTERED DATE: 01/30/21 11:59 CT COMMENT TYPE: Discharge Planning REVIEWER: Ida Briseno [facility] WILL ACCEPT THE PATIENT AND CAN START CARE TOMORROW [facility] WILL COME AND TEACH ENTERED DATE: 01/30/21 9:39 CT COMMENT TYPE: Discharge Planning REVIEWER: Ida Briseno THE IV ABX ORDER WAS CHANGED THIS MORING SO I HAVE RESUBMITTED IT TO [facility], OF RIGHT NOW [facility] CAN NOT ACCEPT THE PATIENT TILL WED, I HAVE SENT THE REFERRAL TO [facility] AND SPOKE WITH CLYDE SHE WILL REVIEW IT AND GET BACK WITH ME CM TO CONTINUE TO FOLLOW AND ASSIST NEEDED ENTERED DATE: 01/30/21 8:17 CT COMMENT TYPE: Discharge Planning REVIEWER: Ida Briseno [facility] WILL NOT BE ABLE TO TAKE THE PATIENT TILL NEXT WEEK, I HAVE NOT HEARD BACK FROM [facility] I WILL REACH OUT TO [facility] WILL BE HERE AT 10:30 FOR EDUCATION OF THE HOME IV ABX ENTERED DATE: 01/30/21 8:16 CT COMMENT TYPE: Discharge Planning REVIEWER: Ida Briseno LATE ENTRY 01/29/21 PATIENT WILL NEED 42 DAYS OF IV ABX. THEY WILL ALSO NEED HOME HEALTH FOR THIS [facility] CAN NOT TAKE AN IV ABX PATIENT ON RIGHT NOW [facility] IS CHECKING FOR AVAIBILITY, [facility] IS ALSO CHECKING TO SEE IF THEY CAN MANAGE IT ENTERED DATE: 01/27/21 13:31 CT COMMENT TYPE: Discharge Planning REVIEWER: Ida Briseno CM met with patient to complete initial dc planning assessment. CM educated patient on the CM role and verbal consent given by patient to complete assessment. Patient lives at home independently at home by himself. At discharge patient plans to return home and feels this is a safe discharge. CM discussed availability of home health, rehab services, and medical equipment. He did not feel like he needed home health. He thinks his home is a safe place. His cousin will be his fire truck driver home and he also has friends who can take him where he needs to go. He has crutches, but stated that a walker was easier to use with the wound vac. I told him that I would order him one and have it delivered to the hospital. He does not have a PCP, we will give him information with [facility] to set up a MD. He stated that he has a truck at home, but it is a stick shift and he can't drive it with his foot the way it is, but assured me that his cousin or friends will help him as needed. Patient denied known discharge needs at this time. CM will continue to follow and will assist as needed with dc plans/needs DCP REVIEW SUMMARY ANTICIPATED D/C DATE: EXPECTED LOS : CASE STATUS: DCP Initiated INITIAL REVIEW: 01/23/2021 INITIAL REVIEWER: Ida Briseno FINAL DISCHARGE DISPOSITION: : FINAL REVIEWER: FINAL REVIEW DATE: DCP Focus Questions & Answers DCP Screen QUESTION: ANSWER High Risk Factors: : Hosp related to CHF, COPD, DM, End Stage Ds, CVA, CA DCP Evaluation QUESTION: ANSWER Patient gives permission to discuss discharge plans with: (name, relationship and number) : DURAN VEGA ( COUSIN) [phone] Patient's ability to cope with chronic illness : a. Adequate (0-3 ED visits in 6 mos., adequate financial resources, attends scheduled appts.) Patient's current cognitive status: : *Oriented to person, place, situation, time and present Family / Caregiver's ability to cope with chronic illness: : a. Adequate (ability to meet patient's medical needs, ensures patient attends medical appts.) Patient and/or caregiver agree upon recommended discharge plan? : Yes Physical Status: : Independent with ADL's Family / Caregiver's ability to cope with chronic illness: : a. Adequate (ability to meet patient's medical needs, ensures patient attends medical appts.) Functional screen assessment: : Basic needs can adequately be met by self Does the patient have the ability to pay for or attain post discharge needs / services? : Yes Living Arrangements: : Residential Is there a likelihood that the patient will require additional services to return to the preadmission environment? : No Equipment needed for post hospitalization: : Walker - Rolling Baseline cognitive status: : *Oriented to person, place, situation, time and present Patient with capacity for self-care or can be cared for in same environment as prior to hospitalization? : Yes Results of this evaluation have been discussed with: : Patient Other Equipment comments: : WILL ORDER HIM A WALKER HE SAID IT IS EASIER THAN HIS CRUTCHES Physical environment modification needed / anticipated for discharge: : No Medication Management: : Patient states can afford medications Pharm[facility] name(s): : [facility] Planned post hospital services available for patient? : Yes Does Patient have transportation to get home and to follow-up medical appointments when discharged from the hospital? : Yes Planned post hospital services covered by insurance plan? : N/A Comments: : HIS COUSIN DURAN OR FRIENDS Would patient like to participate in any Care Coordination programs (if applicable): : Not applicable Does the patient have electricity at home? : Yes Does the patient have running water in their house? : Yes Equipment in use: : Crutches Mental health screen: : No mental health history Psychosocial status: : Independent adult (18-64) Abuse/Neglect: : None DCP Re-evaluation QUESTION: ANSWER Would patient like to participate in any Care Coordination programs (if applicable): : Not applicable PATIENT: REMINGTON RIVERA ENCOUNTER: [id number] MEDICAL RECORD#: [id number] ADMISSION DATE: 01/23/2021 DISCHARGE DATE: ATTENDING MD: FAITH ERAZO : AGE: 60 MARITAL STATUS: S DC PLAN ID: [id number] FACILITY: [facility] PRINTED ON: 01/30/21 12:07 CT All edits/amendments must be made on the electronic document DICTATION DATE: 01/30/211206 GLASS BEVELLER: NANCY 01/30/211206 RPT#: [id number] DC DATE: STATUS: ADM IN [facility] [address] [place] [address] END OF REPORT
--- NOTE | 2021-01-30 13:47 | MORECARE ---
CASE MANAGEMENT DISCHARGE SUMMARY PATIENT: REMINGTON RIVERA UNIT: [id number] ADM DATE: 01/23/21 AGE: 60 : 56 SEX: M ROOM/BED: D.2206 AUTHOR: MELIDA,DOC PHYSICIAN: REFERRING PHYSICIAN: FAITH MORALES MD DATE OF SERVICE: 01/30/21 Case Management Discharge Planning Summary COMMENTS ENTERED DATE: 01/30/21 11:59 CT COMMENT TYPE: Discharge Planning REVIEWER: Ida Briseno [facility] WILL ACCEPT THE PATIENT AND CAN START CARE TOMORROW [facility] WILL COME AND TEACH ENTERED DATE: 01/30/21 9:39 CT COMMENT TYPE: Discharge Planning REVIEWER: Ida Briseno THE IV ABX ORDER WAS CHANGED THIS MORING SO I HAVE RESUBMITTED IT TO [facility], OF RIGHT NOW [facility] CAN NOT ACCEPT THE PATIENT TILL WED, I HAVE SENT THE REFERRAL TO [facility] AND SPOKE WITH CLYDE SHE WILL REVIEW IT AND GET BACK WITH ME CM TO CONTINUE TO FOLLOW AND ASSIST NEEDED ENTERED DATE: 01/30/21 8:17 CT COMMENT TYPE: Discharge Planning REVIEWER: Ida Briseno [facility] WILL NOT BE ABLE TO TAKE THE PATIENT TILL NEXT WEEK, I HAVE NOT HEARD BACK FROM [facility] I WILL REACH OUT TO [facility] WILL BE HERE AT 10:30 FOR EDUCATION OF THE HOME IV ABX ENTERED DATE: 01/30/21 8:16 CT COMMENT TYPE: Discharge Planning REVIEWER: Ida Briseno LATE ENTRY 01/29/21 PATIENT WILL NEED 42 DAYS OF IV ABX. THEY WILL ALSO NEED HOME HEALTH FOR THIS [facility] CAN NOT TAKE AN IV ABX PATIENT ON RIGHT NOW [facility] IS CHECKING FOR AVAIBILITY, CARE IV IS ALSO CHECKING TO SEE IF THEY CAN MANAGE IT ENTERED DATE: 01/27/21 13:31 CT COMMENT TYPE: Discharge Planning REVIEWER: Ida Briseno CM met with patient to complete initial dc planning assessment. CM educated patient on the CM role and verbal consent given by patient to complete assessment. Patient lives at home independently at home by himself. At discharge patient plans to return home and feels this is a safe discharge. CM discussed availability of home health, rehab services, and medical equipment. He did not feel like he needed home health. He thinks his home is a safe place. His cousin will be his delivery driver home and he also has friends who can take him where he needs to go. He has crutches, but stated that a walker was easier to use with the wound vac. I told him that I would order him one and have it delivered to the hospital. He does not have a PCP, we will give him information with [facility] to set up a MD. He stated that he has a truck at home, but it is a stick shift and he can't drive it with his foot the way it is, but assured me that his cousin or friends will help him as needed. Patient denied known discharge needs at this time. CM will continue to follow and will assist as needed with dc plans/needs DCP REVIEW SUMMARY ANTICIPATED D/C DATE: EXPECTED LOS : CASE STATUS: DCP Initiated INITIAL REVIEW: 01/23/2021 INITIAL REVIEWER: Ida Briseno FINAL DISCHARGE DISPOSITION: : FINAL REVIEWER: FINAL REVIEW DATE: DCP Focus Questions & Answers DCP Screen QUESTION: ANSWER High Risk Factors: : Hosp related to CHF, COPD, DM, End Stage Ds, CVA, CA DCP Evaluation QUESTION: ANSWER Patient gives permission to discuss discharge plans with: (name, relationship and number) : DURAN VEGA ( COUSIN) [phone] Patient's ability to cope with chronic illness : a. Adequate (0-3 ED visits in 6 mos., adequate financial resources, attends scheduled appts.) Patient's current cognitive status: : *Oriented to person, place, situation, time and present Family / Caregiver's ability to cope with chronic illness: : a. Adequate (ability to meet patient's medical needs, ensures patient attends medical appts.) Patient and/or caregiver agree upon recommended discharge plan? : Yes Physical Status: : Independent with ADL's Family / Caregiver's ability to cope with chronic illness: : a. Adequate (ability to meet patient's medical needs, ensures patient attends medical appts.) Functional screen assessment: : Basic needs can adequately be met by self Does the patient have the ability to pay for or attain post discharge needs / services? : Yes Living Arrangements: : Custodial Is there a likelihood that the patient will require additional services to return to the preadmission environment? : No Equipment needed for post hospitalization: : Walker - Rolling Baseline cognitive status: : *Oriented to person, place, situation, time and present Patient with capacity for self-care or can be cared for in same environment as prior to hospitalization? : Yes Results of this evaluation have been discussed with: : Patient Other Equipment comments: : WILL ORDER HIM A WALKER HE SAID IT IS EASIER THAN HIS CRUTCHES Physical environment modification needed / anticipated for discharge: : No Medication Management: : Patient states can afford medications Pharmacy name(s): : [facility] Planned post hospital services available for patient? : Yes Does Patient have transportation to get home and to follow-up medical appointments when discharged from the hospital? : Yes Planned post hospital services covered by insurance plan? : N/A Comments: : HIS COUSIN DURAN OR FRIENDS Would patient like to participate in any Care Coordination programs (if applicable): : Not applicable Does the patient have electricity at home? : Yes Does the patient have running water in their house? : Yes Equipment in use: : Crutches Mental health screen: : No mental health history Psychosocial status: : Independent adult (18-64) Abuse/Neglect: : None DCP Re-evaluation QUESTION: ANSWER Would patient like to participate in any Care Coordination programs (if applicable): : Not applicable PATIENT: REMINGTON RIVERA ENCOUNTER: [id number] MEDICAL RECORD#: [id number] ADMISSION DATE: 01/23/2021 DISCHARGE DATE: ATTENDING MD: FAITH ERAZO : AGE: 60 MARITAL STATUS: S DC PLAN ID: [id number] FACILITY: [facility] PRINTED ON: 01/30/21 13:47 CT All edits/amendments must be made on the electronic document DICTATION DATE: 01/30/211346 SECURITY CLERK: NANCY 01/30/211346 RPT#: [id number] DC DATE: STATUS: ADM IN [facility] [address] [place] [address] END OF REPORT
--- NOTE | 2021-01-30 15:25 | MORECARE ---
CASE MANAGEMENT DISCHARGE SUMMARY PATIENT: REMINGTON RIVERA UNIT: [id number] ADM DATE: 01/23/21 AGE: 60 : 56 SEX: M ROOM/BED: D.2206 AUTHOR: MELIDA,DOC PHYSICIAN: REFERRING PHYSICIAN: FAITH MORALES MD DATE OF SERVICE: 01/30/21 Case Management Discharge Planning Summary COMMENTS ENTERED DATE: 01/30/21 15:23 CT COMMENT TYPE: Discharge Planning REVIEWER: Ida Briseno [facility] WITH [facility] HERE TO TEACH WITH HIS COUSIN AT BEDSIDE TO ALSO LEARN [facility] WILL START CARE TOMORROW ENTERED DATE: 01/30/21 11:59 CT COMMENT TYPE: Discharge Planning REVIEWER: Ida Briseno [facility] WILL ACCEPT THE PATIENT AND CAN START CARE TOMORROW [facility] WILL COME AND TEACH ENTERED DATE: 01/30/21 9:39 CT COMMENT TYPE: Discharge Planning REVIEWER: Ida Briseno THE IV ABX ORDER WAS CHANGED THIS MORING SO I HAVE RESUBMITTED IT TO [facility], OF RIGHT NOW [facility] CAN NOT ACCEPT THE PATIENT TILL WED, I HAVE SENT THE REFERRAL TO [facility] AND SPOKE WITH CLYDE SHE WILL REVIEW IT AND GET BACK WITH ME CM TO CONTINUE TO FOLLOW AND ASSIST NEEDED ENTERED DATE: 01/30/21 8:17 CT COMMENT TYPE: Discharge Planning REVIEWER: Ida Briseno [facility] WILL NOT BE ABLE TO TAKE THE PATIENT TILL NEXT WEEK, I HAVE NOT HEARD BACK FROM CARE IV I WILL REACH OUT TO [facility] WILL BE HERE AT 10:30 FOR EDUCATION OF THE HOME IV ABX ENTERED DATE: 01/30/21 8:16 CT COMMENT TYPE: Discharge Planning REVIEWER: Ida Briseno LATE ENTRY 01/29/21 PATIENT WILL NEED 42 DAYS OF IV ABX. THEY WILL ALSO NEED HOME HEALTH FOR THIS [facility] CAN NOT TAKE AN IV ABX PATIENT ON RIGHT NOW [facility] IS CHECKING FOR AVAIBILITY, [facility]ARE [facility] IS ALSO CHECKING TO SEE IF THEY CAN MANAGE IT ENTERED DATE: 01/27/21 13:31 CT COMMENT TYPE: Discharge Planning REVIEWER: Ida Briseno CM met with patient to complete initial dc planning assessment. CM educated patient on the CM role and verbal consent given by patient to complete assessment. Patient lives at home independently at home by himself. At discharge patient plans to return home and feels this is a safe discharge. CM discussed availability of home health, rehab services, and medical equipment. He did not feel like he needed home health. He thinks his home is a safe place. His cousin will be his driver wheelchair home and he also has friends who can take him where he needs to go. He has crutches, but stated that a walker was easier to use with the wound vac. I told him that I would order him one and have it delivered to the hospital. He does not have a PCP, we will give him information with [facility] to set up a MD. He stated that he has a truck at home, but it is a stick shift and he can't drive it with his foot the way it is, but assured me that his cousin or friends will help him as needed. Patient denied known discharge needs at this time. CM will continue to follow and will assist as needed with dc plans/needs DCP REVIEW SUMMARY ANTICIPATED D/C DATE: EXPECTED LOS : CASE STATUS: DCP Initiated INITIAL REVIEW: 01/23/2021 INITIAL REVIEWER: Ida Briseno FINAL DISCHARGE DISPOSITION: : FINAL REVIEWER: FINAL REVIEW DATE: DCP Focus Questions & Answers DCP Screen QUESTION: ANSWER High Risk Factors: : Hosp related to CHF, COPD, DM, End Stage Ds, CVA, CA DCP Evaluation QUESTION: ANSWER Patient gives permission to discuss discharge plans with: (name, relationship and number) : DURAN VEGA ( COUSIN) [phone] Patient's ability to cope with chronic illness : a. Adequate (0-3 ED visits in 6 mos., adequate financial resources, attends scheduled appts.) Patient's current cognitive status: : *Oriented to person, place, situation, time and present Family / Caregiver's ability to cope with chronic illness: : a. Adequate (ability to meet patient's medical needs, ensures patient attends medical appts.) Patient and/or caregiver agree upon recommended discharge plan? : Yes Physical Status: : Independent with ADL's Family / Caregiver's ability to cope with chronic illness: : a. Adequate (ability to meet patient's medical needs, ensures patient attends medical appts.) Functional screen assessment: : Basic needs can adequately be met by self Does the patient have the ability to pay for or attain post discharge needs / services? : Yes Living Arrangements: : [facility] Is there a likelihood that the patient will require additional services to return to the preadmission environment? : No Equipment needed for post hospitalization: : Walker - Rolling Baseline cognitive status: : *Oriented to person, place, situation, time and present Patient with capacity for self-care or can be cared for in same environment as prior to hospitalization? : Yes Results of this evaluation have been discussed with: : Patient Other Equipment comments: : WILL ORDER HIM A WALKER HE SAID IT IS EASIER THAN HIS CRUTCHES Physical environment modification needed / anticipated for discharge: : No Medication Management: : Patient states can afford medications Pharmacy name(s): : [facility] Planned post hospital services available for patient? : Yes Does Patient have transportation to get home and to follow-up medical appointments when discharged from the hospital? : Yes Planned post hospital services covered by insurance plan? : N/A Comments: : HIS COUSIN DURAN OR FRIENDS Would patient like to participate in any Care Coordination programs (if applicable): : Not applicable Does the patient have electricity at home? : Yes Does the patient have running water in their house? : Yes Equipment in use: : Crutches Mental health screen: : No mental health history Psychosocial status: : Independent adult (18-64) Abuse/Neglect: : None DCP Re-evaluation QUESTION: ANSWER Would patient like to participate in any Care Coordination programs (if applicable): : Not applicable PATIENT: REMINGTON RIVERA ENCOUNTER: [id number] MEDICAL RECORD#: [id number] ADMISSION DATE: 01/23/2021 DISCHARGE DATE: ATTENDING MD: FAITH ERAZO : AGE: 60 MARITAL STATUS: S DC PLAN ID: [id number] FACILITY: [facility] PRINTED ON: 01/30/21 15:25 CT All edits/amendments must be made on the electronic document DICTATION DATE: 01/30/21 152 ELOCUTION TEACHER: NANCY 01/30/21 1525 RPT#: [id number] DC DATE: STATUS: ADM IN [facility] [address] [place] [address] END OF REPORT
--- NOTE | 2021-01-30 16:00 | NUR ---
IV DISCONTINUED AND VERBALIZED UNDERSTANDING OF DISCHARGE INSTRUCTIONS INCLUDING PROVENA VAC AND IV ABX EDUCATION PROVIDED BY [facility]. STABLE AT TIME OF DISCHARGE
--- NOTE | 2021-02-03 09:17 | MORECARE ---
CASE MANAGEMENT DISCHARGE SUMMARY PATIENT: REMINGTON RIVERA UNIT: [id number] ADM DATE: 01/23/21 AGE: 60 : 56 SEX: M ROOM/BED: D.2206 AUTHOR: MELIDA,DOC PHYSICIAN: REFERRING PHYSICIAN: FAITH MORALES MD DATE OF SERVICE: 02/03/21 Case Management Discharge Planning Summary COMMENTS ENTERED DATE: 01/30/21 15:23 CT COMMENT TYPE: Discharge Planning REVIEWER: Ida Briseno [facility] WITH [facility] HERE TO TEACH WITH HIS COUSIN AT BEDSIDE TO ALSO LEARN [facility] WILL START CARE TOMORROW ENTERED DATE: 01/30/21 11:59 CT COMMENT TYPE: Discharge Planning REVIEWER: Ida Briseno [facility] WILL ACCEPT THE PATIENT AND CAN START CARE TOMORROW [facility] WILL COME AND TEACH ENTERED DATE: 01/30/21 9:39 CT COMMENT TYPE: Discharge Planning REVIEWER: Ida Briseno THE IV ABX ORDER WAS CHANGED THIS MORING SO I HAVE RESUBMITTED IT TO [facility], OF RIGHT NOW [facility] CAN NOT ACCEPT THE PATIENT TILL WED, I HAVE SENT THE REFERRAL TO [facility] AND SPOKE WITH CLYDE SHE WILL REVIEW IT AND GET BACK WITH ME CM TO CONTINUE TO FOLLOW AND ASSIST NEEDED ENTERED DATE: 01/30/21 8:17 CT COMMENT TYPE: Discharge Planning REVIEWER: Ida Briseno [facility] WILL NOT BE ABLE TO TAKE THE PATIENT TILL NEXT WEEK, I HAVE NOT HEARD BACK FROM [facility]ARE IV I WILL REACH OUT TO [facility] WILL BE HERE AT 10:30 FOR EDUCATION OF THE HOME IV ABX ENTERED DATE: 01/30/21 8:16 CT COMMENT TYPE: Discharge Planning REVIEWER: Ida Briseno LATE ENTRY 01/29/21 PATIENT WILL NEED 42 DAYS OF IV ABX. THEY WILL ALSO NEED HOME HEALTH FOR THIS [facility] CAN NOT TAKE AN IV ABX PATIENT ON RIGHT NOW [facility] IS CHECKING FOR AVAIBILITY, [facility] IS ALSO CHECKING TO SEE IF THEY CAN MANAGE IT ENTERED DATE: 01/27/21 13:31 CT COMMENT TYPE: Discharge Planning REVIEWER: Ida Briseno CM met with patient to complete initial dc planning assessment. CM educated patient on the CM role and verbal consent given by patient to complete assessment. Patient lives at home independently at home by himself. At discharge patient plans to return home and feels this is a safe discharge. CM discussed availability of home health, rehab services, and medical equipment. He did not feel like he needed home health. He thinks his home is a safe place. His cousin will be his deliver driver home and he also has friends who can take him where he needs to go. He has crutches, but stated that a walker was easier to use with the wound vac. I told him that I would order him one and have it delivered to the hospital. He does not have a PCP, we will give him information with [facility] to set up a MD. He stated that he has a truck at home, but it is a stick shift and he can't drive it with his foot the way it is, but assured me that his cousin or friends will help him as needed. Patient denied known discharge needs at this time. CM will continue to follow and will assist as needed with dc plans/needs DCP REVIEW SUMMARY ANTICIPATED D/C DATE: EXPECTED LOS : CASE STATUS: DCP Initiated INITIAL REVIEW: 01/23/2021 INITIAL REVIEWER: Ida Briseno FINAL DISCHARGE DISPOSITION: : FINAL REVIEWER: FINAL REVIEW DATE: DCP Focus Questions & Answers DCP Screen QUESTION: ANSWER High Risk Factors: : Hosp related to CHF, COPD, DM, End Stage Ds, CVA, CA DCP Evaluation QUESTION: ANSWER Patient gives permission to discuss discharge plans with: (name, relationship and number) : DURAN VEGA ( COUSIN) [phone] Patient's ability to cope with chronic illness : a. Adequate (0-3 ED visits in 6 mos., adequate financial resources, attends scheduled appts.) Patient's current cognitive status: : *Oriented to person, place, situation, time and present Family / Caregiver's ability to cope with chronic illness: : a. Adequate (ability to meet patient's medical needs, ensures patient attends medical appts.) Patient and/or caregiver agree upon recommended discharge plan? : Yes Physical Status: : Independent with ADL's Family / Caregiver's ability to cope with chronic illness: : a. Adequate (ability to meet patient's medical needs, ensures patient attends medical appts.) Functional screen assessment: : Basic needs can adequately be met by self Does the patient have the ability to pay for or attain post discharge needs / services? : Yes Living Arrangements: : [facility]iary Is there a likelihood that the patient will require additional services to return to the preadmission environment? : No Equipment needed for post hospitalization: : Walker - Rolling Baseline cognitive status: : *Oriented to person, place, situation, time and present Patient with capacity for self-care or can be cared for in same environment as prior to hospitalization? : Yes Results of this evaluation have been discussed with: : Patient Other Equipment comments: : WILL ORDER HIM A WALKER HE SAID IT IS EASIER THAN HIS CRUTCHES Physical environment modification needed / anticipated for discharge: : No Medication Management: : Patient states can afford medications Pharmacy name(s): : [facility] Planned post hospital services available for patient? : Yes Does Patient have transportation to get home and to follow-up medical appointments when discharged from the hospital? : Yes Planned post hospital services covered by insurance plan? : N/A Comments: : HIS COUSIN DURAN OR FRIENDS Would patient like to participate in any Care Coordination programs (if applicable): : Not applicable Does the patient have electricity at home? : Yes Does the patient have running water in their house? : Yes Equipment in use: : Crutches Mental health screen: : No mental health history Psychosocial status: : Independent adult (18-64) Abuse/Neglect: : None DCP Re-evaluation QUESTION: ANSWER Would patient like to participate in any Care Coordination programs (if applicable): : Not applicable PATIENT: REMINGTON RIVERA ENCOUNTER: [id number] MEDICAL RECORD#: [id number] ADMISSION DATE: 01/23/2021 DISCHARGE DATE: 01/30/2021 ATTENDING MD: FAITH ERAZO : AGE: 60 MARITAL STATUS: S DC PLAN ID: [id number] FACILITY: [facility] PRINTED ON: 02/03/21 9:17 CT All edits/amendments must be made on the electronic document DICTATION DATE: 02/03/21916 COMMODITIES TRADER: NANCY 02/03/21916 RPT#: [id number] DC DATE:01/30/21 STATUS: DIS IN [facility] [address] [place] [address] END OF REPORT
--- NOTE | 2021-02-04 07:20 | OP ---
PATIENT NAME: REMINGTON LEVINE MEDICAL RECORD: [id number] :56 LOCATION:[id number] ADMISSION DATE:01/23/21 SURGEON: ELIANA ALLRED DO DATE OF OPERATION: 01/25/2021 PROCEDURE PERFORMED: Right foot incision and debridement with bone biopsy of the tarsal bones and Kerecis application. PREOPERATIVE DIAGNOSES: Right foot diabetic foot ulcer and osteomyelitis. POSTOPERATIVE DIAGNOSES: Right foot diabetic foot ulcer and osteomyelitis. INDICATIONS: Mr. Levine is a 60-year-old male who has developed an ulcer over the medial aspect of his right foot. He said several weeks ago it got to a point where it opened and he was draining it he said himself. He came to the hospital as it was red and very inflamed. He was started on IV antibiotics. I saw him yesterday morning as he was eating breakfast. I told him that, since he was eating breakfast, we would do it today, a bone biopsy and total I&D and put a Kerecis on the superior regrowth of skin. He had a 4 x 3 cm ulcer on the medial aspect of his foot down to the level of the fascia. I did not see any bone exposed at the time. He was aware of the risks of this, including further infection, bleeding, damage to nerves and vessels, need for further surgery, continued pain, blood clots and even and also he is aware of the risks of needing a below-knee amputation and he signed the consent. SURGEON: Eliana Allred D.O. DESCRIPTION OF PROCEDURE: The patient was taken to the operative suite, laid in supine position, given general anesthetic and LMA was placed. He was on antibiotics on the floor. The left lower extremity was prepped and draped in sterile fashion. A timeout was performed and everyone was in agreement with correct site, side, patient, procedure. I then began by making an incision around the ulcer debriding any tissue with a 15 blade scalpel and a curette down to the level of the fascia. I then irrigated with 3 liters of normal saline. I then debrided again around the skin to good bleeding edges of the 4 x 3 x 0.5 cm depth wound. I then had taken biopsies with a Jamshidi needle of the navicular and medial cuneiforms right in the ulcer site; however, they were covered with fascia. I then got good bleeding edges of the wound. I sewed in a 7 x 7 Kerecis patch doubling it over on itself and tucking the excess into the wound. I then sewed it in with a 4-0 Monocryl running stitch. We then cleaned the foot, put on Cavilon and applied a Prevena Plus VAC and it held suction well. He was then awakened and taken to recovery in stable condition. BLOOD LOSS: Minimal. COMPLICATIONS: None. TRANSINT:[id number] Voice Confirmation ID: [id number] DOCUMENT ID: [id number] OPERATIVE REPORT [id number] REMINGTON LEVINE,ELIANA Aguilar DO at 0720 CC: [id number] DICTATION DATE: 01/25/21 1633 PRINTER FLOOR COVERING ASSISTANT: 01/27/21 [id number] DIS IN 01/30/21 [facility] [address] [place] [address]
--- NOTE | 2021-02-04 12:10 | MORECARE ---
CASE MANAGEMENT DISCHARGE SUMMARY PATIENT: REMINGTON RIVERA UNIT: [id number] ADM DATE: 01/23/21 AGE: 60 : 56 SEX: M ROOM/BED: D.2206 AUTHOR: MELIDA,DOC PHYSICIAN: REFERRING PHYSICIAN: FAITH MORALES MD DATE OF SERVICE: 02/04/21 Case Management Discharge Planning Summary COMMENTS ENTERED DATE: 01/30/21 15:23 CT COMMENT TYPE: Discharge Planning REVIEWER: Ida Briseno DERIC WITH [facility] HERE TO TEACH WITH HIS COUSIN AT BEDSIDE TO ALSO LEARN [facility] WILL START CARE TOMORROW ENTERED DATE: 01/30/21 11:59 CT COMMENT TYPE: Discharge Planning REVIEWER: Ida Briseno [facility] WILL ACCEPT THE PATIENT AND CAN START CARE TOMORROW [facility] WILL COME AND TEACH ENTERED DATE: 01/30/21 9:39 CT COMMENT TYPE: Discharge Planning REVIEWER: Ida Briseno THE IV ABX ORDER WAS CHANGED THIS MORING SO I HAVE RESUBMITTED IT TO [facility], OF RIGHT NOW [facility] CAN NOT ACCEPT THE PATIENT TILL WED, I HAVE SENT THE REFERRAL TO [facility] AND SPOKE WITH CLYDE SHE WILL REVIEW IT AND GET BACK WITH ME CM TO CONTINUE TO FOLLOW AND ASSIST NEEDED ENTERED DATE: 01/30/21 8:17 CT COMMENT TYPE: Discharge Planning REVIEWER: Ida Briseno [facility] WILL NOT BE ABLE TO TAKE THE PATIENT TILL NEXT WEEK, I HAVE NOT HEARD BACK FROM [facility] I WILL REACH OUT TO [facility] WILL BE HERE AT 10:30 FOR EDUCATION OF THE HOME IV ABX ENTERED DATE: 01/30/21 8:16 CT COMMENT TYPE: Discharge Planning REVIEWER: Ida Briseno LATE ENTRY 01/29/21 PATIENT WILL NEED 42 DAYS OF IV ABX. THEY WILL ALSO NEED HOME HEALTH FOR THIS [facility] CAN NOT TAKE AN IV ABX PATIENT ON RIGHT NOW [facility] IS CHECKING FOR AVAIBILITY, [facility] IS ALSO CHECKING TO SEE IF THEY CAN MANAGE IT ENTERED DATE: 01/27/21 13:31 CT COMMENT TYPE: Discharge Planning REVIEWER: Ida Briseno CM met with patient to complete initial dc planning assessment. CM educated patient on the CM role and verbal consent given by patient to complete assessment. Patient lives at home independently at home by himself. At discharge patient plans to return home and feels this is a safe discharge. CM discussed availability of home health, rehab services, and medical equipment. He did not feel like he needed home health. He thinks his home is a safe place. His cousin will be his yard truck driver home and he also has friends who can take him where he needs to go. He has crutches, but stated that a walker was easier to use with the wound vac. I told him that I would order him one and have it delivered to the hospital. He does not have a PCP, we will give him information with [facility] to set up a MD. He stated that he has a truck at home, but it is a stick shift and he can't drive it with his foot the way it is, but assured me that his cousin or friends will help him as needed. Patient denied known discharge needs at this time. CM will continue to follow and will assist as needed with dc plans/needs DCP REVIEW SUMMARY ANTICIPATED D/C DATE: EXPECTED LOS : CASE STATUS: DCP Initiated INITIAL REVIEW: 01/23/2021 INITIAL REVIEWER: Ida Briseno FINAL DISCHARGE DISPOSITION: : FINAL REVIEWER: FINAL REVIEW DATE: DCP Focus Questions & Answers DCP Screen QUESTION: ANSWER High Risk Factors: : Hosp related to CHF, COPD, DM, End Stage Ds, CVA, CA DCP Evaluation QUESTION: ANSWER Patient and/or caregiver agree upon recommended discharge plan? : Yes Family / Caregiver's ability to cope with chronic illness: : a. Adequate (ability to meet patient's medical needs, ensures patient attends medical appts.) Patient's current cognitive status: : *Oriented to person, place, situation, time and present Patient's ability to cope with chronic illness : a. Adequate (0-3 ED visits in 6 mos., adequate financial resources, attends scheduled appts.) Patient gives permission to discuss discharge plans with: (name, relationship and number) : DURAN VEGA ( COUSIN) [phone] Does the patient have the ability to pay for or attain post discharge needs / services? : Yes Functional screen assessment: : Basic needs can adequately be met by self Family / Caregiver's ability to cope with chronic illness: : a. Adequate (ability to meet patient's medical needs, ensures patient attends medical appts.) Physical Status: : Independent with ADL's Equipment needed for post hospitalization: : Walker - Rolling Is there a likelihood that the patient will require additional services to return to the preadmission environment? : No Living Arrangements: : Jail Other Equipment comments: : WILL ORDER HIM A WALKER HE SAID IT IS EASIER THAN HIS CRUTCHES Results of this evaluation have been discussed with: : Patient Patient with capacity for self-care or can be cared for in same environment as prior to hospitalization? : Yes Baseline cognitive status: : *Oriented to person, place, situation, time and present Physical environment modification needed / anticipated for discharge: : No Medication Management: : Patient states can afford medications Planned post hospital services available for patient? : Yes Pharmacy name(s): : [facility] Planned post hospital services covered by insurance plan? : N/A Does Patient have transportation to get home and to follow-up medical appointments when discharged from the hospital? : Yes Would patient like to participate in any Care Coordination programs (if applicable): : Not applicable Comments: : HIS COUSIN DURAN OR FRIENDS Does the patient have electricity at home? : Yes Does the patient have running water in their house? : Yes Equipment in use: : Crutches Mental health screen: : No mental health history Psychosocial status: : Independent adult (18-64) Abuse/Neglect: : None DCP Re-evaluation QUESTION: ANSWER Would patient like to participate in any Care Coordination programs (if applicable): : Not applicable PATIENT: REMINGTON RIVERA ENCOUNTER: [id number] MEDICAL RECORD#: [id number] ADMISSION DATE: 01/23/2021 DISCHARGE DATE: 01/30/2021 ATTENDING MD: FAITH ERAZO : AGE: 60 MARITAL STATUS: S DC PLAN ID: [id number] FACILITY: [facility] PRINTED ON: 02/04/21 12:10 CT All edits/amendments must be made on the electronic document DICTATION DATE: 02/04/21 121 FURRIER APPRENTICE: NANCY 02/04/21 1210 RPT#: [id number] DC DATE:01/30/21 STATUS: DIS IN [facility] [address] [place] [address] END OF REPORT
[2021-02-04 16:09] LABS: AEROBE ID Preliminary report (()); RESULT 1 Gram positive cocci (())
== END 2021-01-30 16:00 | disposition home health service (06) | DRG 623 ==
LOC: D.ER 19:51 → D.MS 22:29
PROVIDERS: Orthopaedic Surgery; Student in an Organized Health Care Education/Training Program; ADMIT Family Medicine; ATTEND Family Medicine
PROC: 0JBQ0ZZ Excision of Right Foot Subcutaneous Tissue and Fascia, Open Approach (ICD-10-PCS; principal; 2021-01-25 12:00)
PROC: 0QBL3ZX Excision of Right Tarsal, Percutaneous Approach, Diagnostic (ICD-10-PCS; 2021-01-25 12:00)
DX: E11.69 Type 2 diabetes mellitus with other specified complication (principal); M86.171 Other acute osteomyelitis, right ankle and foot; J44.9 Chronic obstructive pulmonary disease, unspecified; E11.621 Type 2 diabetes mellitus with foot ulcer

== ENCOUNTER → 2021-02-09 19:01 | Outpatient (CLI) | payer MEDICAID ==
[2021-01-24 07:53] VITALS: BMI 21.2
[~2021-02-09 19:01] MED LIST changes: +ALEVE220 MG PO; +FORTAZ IV; +HYDROCODON-ACE1 EAC7 PO; +MAXIPIME 2 GM/D52 G1 IV; +METFORMIN HCL500 M1 PO; +SLEEP AID; +TRELEGY ELLIPT1 EACH INH; +[UNRECOGNIZED DRUG - OTHER] IV
[2021-02-09 19:58] LABS: HEMATOCRIT 27.5 % (42.0-54.0); HEMOGLOBIN 8.7 g/dL (13.5-17.5); MCH 33.2 pg (26.0-34.0); MCHC 31.7 g/dL (31.0-37.0); MCV 104.8 fL (80.0-100.0); MEAN PLATELET VOLUME 8.7 fL (7.4-10.4); PLATELET COUNT 249 10x3/uL (130-400); RBC 2.63 10x6/uL (4.20-6.10); WBC 7.4 10x3/uL (4.8-10.8)
[2021-02-09 20:18] LABS: C-REACTIVE PROTEIN 0.6 mg/dL (0.0-0.9); CREATININE - SERUM 1.4 mg/dL (0.6-1.3)
[2021-02-09 20:21] LABS: EOSINOPHILS 13 % (0-7); LYMPHOCYTES 20 % (15-50); MONOCYTES 4 % (2-11); NEUTROPHILS 55 % (40-80); PLATELET ESTIMATE NORMAL
[2021-02-09 21:05] LABS: ERYTHROCYTE SEDIMENTATION RATE 10 mm/hr (0-20)
== END | disposition home or self-care (01) ==
LOC: D.LABREF 19:01
PROVIDERS: ATTEND Family Medicine
DX: L03.115 Cellulitis of right lower limb (principal)

== ENCOUNTER → 2021-02-16 17:36 | Outpatient (CLI) | payer MEDICAID ==
[2021-01-24 07:53] VITALS: BMI 21.2
[2021-02-16 17:51] LABS: BASOPHILS 0.6 % (0-2); EOSINOPHILS 10.1 % (0-7); HEMATOCRIT 38.4 % (42.0-54.0); HEMOGLOBIN 12.5 g/dL (13.5-17.5); MCH 33.1 pg (26.0-34.0); MCHC 32.6 g/dL (31.0-37.0); MCV 101.4 fL (80.0-100.0); MEAN PLATELET VOLUME 10.1 fL (7.4-10.4); MONOCYTES 8.2 % (2-11); NEUTROPHILS 44.1 % (40-80); RBC 3.79 10x6/uL (4.20-6.10); RDW 15.9 % (11.5-14.5); WBC 7.5 10x3/uL (4.8-10.8)
[2021-02-16 17:57] LABS: PLATELET COUNT 194 10x3/uL (130-400)
[2021-02-16 18:02] LABS: C-REACTIVE PROTEIN 0.6 mg/dL (0.0-0.9); CREATININE - SERUM 1.1 mg/dL (0.6-1.3)
[2021-02-16 18:54] LABS: ERYTHROCYTE SEDIMENTATION RATE 14 mm/hr (0-20)
== END | disposition home or self-care (01) ==
LOC: D.LABREF 17:36
PROVIDERS: ATTEND Orthopaedic Surgery
DX: L03.115 Cellulitis of right lower limb (principal)

== ENCOUNTER → 2021-02-23 14:40 | Outpatient (CLI) | payer MEDICAID ==
[2021-01-24 07:53] VITALS: BMI 21.2
[2021-02-23 14:56] LABS: BASOPHILS 1.4 % (0-2); EOSINOPHILS 13.4 % (0-7); HEMATOCRIT 51.6 % (42.0-54.0); HEMOGLOBIN 17.2 g/dL (13.5-17.5); LYMPHOCYTES 26.4 % (15-50); MCH 33.7 pg (26.0-34.0); MCHC 33.3 g/dL (31.0-37.0); MCV 101.3 fL (80.0-100.0); MEAN PLATELET VOLUME 9.4 fL (7.4-10.4); MONOCYTES 5.7 % (2-11); NEUTROPHILS 53.1 % (40-80); RDW 16.7 % (11.5-14.5); WBC 6.5 10x3/uL (4.8-10.8)
[2021-02-23 15:18] LABS: PLATELET COUNT 129 10x3/uL (130-400)
[2021-02-23 16:57] LABS: ERYTHROCYTE SEDIMENTATION RATE 12 mm/hr (0-20)
== END | disposition home or self-care (01) ==
LOC: D.LABREF 14:40
PROVIDERS: ATTEND Orthopaedic Surgery
DX: L03.115 Cellulitis of right lower limb (principal)

== ENCOUNTER → 2021-03-02 16:24 | Outpatient (CLI) | payer MEDICAID ==
[2021-01-24 07:53] VITALS: BMI 21.2
[2021-03-02 16:38] LABS: BASOPHILS 2.7 % (0-2); EOSINOPHILS 7.8 % (0-7); HEMATOCRIT 39.3 % (42.0-54.0); HEMOGLOBIN 12.8 g/dL (13.5-17.5); LYMPHOCYTES 28.3 % (15-50); MCH 32.8 pg (26.0-34.0); MCHC 32.7 g/dL (31.0-37.0); MCV 100.3 fL (80.0-100.0); MEAN PLATELET VOLUME 9.4 fL (7.4-10.4); NEUTROPHILS 51.2 % (40-80); RBC 3.92 10x6/uL (4.20-6.10); WBC 8.4 10x3/uL (4.8-10.8)
[2021-03-02 16:39] LABS: PLATELET COUNT 269 10x3/uL (130-400)
[2021-03-02 18:12] LABS: ERYTHROCYTE SEDIMENTATION RATE 17 mm/hr (0-20)
== END | disposition home or self-care (01) ==
LOC: D.LABREF 16:24
PROVIDERS: ATTEND Orthopaedic Surgery
DX: L03.116 Cellulitis of left lower limb (principal)